=== PATIENT | male | born 1985 | race Caucasian/White ===

== ENCOUNTER 2017-12-24 20:20 | Emergency (ER) | payer BC ==
[2017-12-24] MEDS ORDERED: diphenhydrAMINE 50 MG/ML VIAL ONE (20:34)
[2017-12-24] MEDS ORDERED: Famotidine 20 MG TAB ONE (20:34)
[2017-12-24] MEDS ORDERED: methylPREDNISolone Sod Succ/PF 125 MG/2 ML VIAL ONE (20:34)
[2017-12-24] MEDS ORDERED: Famotidine/PF 20 mg/2ml Vial ONE (20:34)
== END 2017-12-24 22:25 | disposition home or self-care (01) ==
LOC: ERS 20:20
DX: T63.441A Toxic effect of venom of bees, accidental (unintentional), initial encounter (principal); F17.210 Nicotine dependence, cigarettes, uncomplicated; Z79.891 Long term (current) use of opiate analgesic
CPT/HCPCS: 96374; 96375; J1200; J2930; S0028

== ENCOUNTER 2018-01-06 23:28 | Emergency (ER) | payer BC ==
[2018-01-07] MEDS ORDERED: methylPREDNISolone Sod Succ/PF 125 MG/2 ML VIAL ONE (00:03)
[2018-01-07] MEDS ORDERED: Famotidine/PF 20 mg/2ml Vial ONE (00:03)
[2018-01-07 00:17] LABS: #Lymphocytes 0.6 thou/uL (1.20-3.40); #Monocytes 0.1 thou/uL (0.11-0.59); #Neutrophils 7.4 thou/uL (1.40-6.50); %Eosinophils 0.2 % (0.0-10.0); %Lymphocytes 7.1 % (21.0-51.0); %Monocytes 0.7 % (0.0-10.0); Hemoglobin 14.5 g/dL (14.0-18.0); Mean Corpuscular HGB CONC 34.1 g/dL (32.0-36.0); Mean Corpuscular Hemoglobin 32.3 pg (27.0-31.0); Mean Corpuscular Volume 94.7 fL (78.0-98.0); Mean Platelet Volume 7.4 fL (7.4-10.4); Platelet Count 246 thou/uL (130-400); RBC Distribution Width 11.6 % (11.5-14.5); Red Blood Cell (RBC) Count 4.48 mill/uL (4.70-6.10); White Blood Cell (WBC) Count 8.1 thou/uL (4.8-10.8)
[2018-01-07 00:38] LABS: ALT (SGPT) 27 U/L (8-55); AST (SGOT) 15 U/L (5-34); Albumin 4.3 g/dL (3.5-5.0); Alkaline Phosphatase 49 U/L (40-150); Anion Gap 18 mmol/L (10-20); BUN (Urea Nitrogen) 13 mg/dL (8.9-20.6); Bilirubin, Total 0.7 mg/dL (0.2-1.2); Calc. Creatinine Clearance 0 mL/min (70-130); Calcium 9.4 mg/dL (7.8-10.44); Carbon Dioxide 18 mmol/L (22-29); Chloride 106 mmol/L (98-107); Estimated GFR-MDRD 79; Globulin 2.7 g/dL (2.4-3.5); Glucose 260 mg/dL (70-105); Potassium 3.7 mmol/L (3.5-5.1); Sodium 138 mmol/L (136-145)
--- NOTE | 2018-01-07 07:45 | RAD ---
PORTABLE CHEST: HISTORY: Shortness of breath. FINDINGS: Lung swann appear clear. No infiltrate. No evidence of vascular congestion. Heart and mediastinum unremarkable. IMPRESSION: No acute finding. POS: [facility]
== END 2018-01-07 02:00 | disposition home or self-care (01) ==
LOC: ERS 23:28
DX: L50.0 Allergic urticaria (principal); E78.5 Hyperlipidemia, unspecified; I10 Essential (primary) hypertension; F17.210 Nicotine dependence, cigarettes, uncomplicated; Z79.899 Other long term (current) drug therapy; Z79.891 Long term (current) use of opiate analgesic
CPT/HCPCS: 36415; 71045; 80053; 85025; 93005; 99283; J2930; S0028